=== PATIENT | female | born 1970 | race Caucasian/White ===

== ENCOUNTER → 2016-06-03 | Outpatient (CLI) | payer OTHER ==
--- NOTE | 2016-06-03 09:31 | RAD ---
DATE: 06/03/2016 EXAM: DIGITAL DIAGNOSTIC LT HISTORY: Possible abnormality seen on screening COMPARISON: Screening examination 2 weeks earlier This study was interpreted with the benefit of Computerized Aided Detection (CAD). FINDINGS: The breast parenchyma unchanged relative to the screening exam. An ML view as well as 2 coned compression views and rolled cc views were obtained. On the cone compression views the finding seen on screening is reproduced although it appears somewhat smaller. No abnormality is seen on the MLO view or on the rolled cc view laterally. The finding likely reflects summation artifact. A single follow-up cc view of the left breast is suggested in 6 months to document stability. IMPRESSION: Probable benign finding BI-RADS CATEGORY: 3 PROBABLE BENIGN FINDING(S-SHORT INTERVAL FOLLOW-UP SUGGESTED RECOMMENDED FOLLOW-UP: 6M 6 MONTH FOLLOW-UP PQRS compliance statement: Patient information was entered into a reminder system with a target due date 12/04/2016 for the next mammogram. Mammography is a sensitive method for finding small breast cancers, but it does not detect them all and is not a substitute for careful clinical examination. A negative mammogram does not negate a clinically suspicious finding and should not result in delay in biopsying a clinically suspicious abnormality. "Our facility is accredited by the [employer] Mammography [employer]."
== END | disposition home or self-care (01) ==
LOC: MAMMO 08:56
PROVIDERS: ATTEND Physician Assistant
DX: R92.8 Other abnormal and inconclusive findings on diagnostic imaging of breast (principal)
CPT/HCPCS: G0206; 77065

== ENCOUNTER → 2018-01-25 | Outpatient (CLI) | payer OTHER ==
--- NOTE | 2018-01-25 12:02 | RAD ---
Complete abdominal ultrasound History: EPIGASTRIC PAIN. Findings: Aorta: No evidence of aneurysm. Inferior vena cava: Patent Pancreas: Poorly visualized Liver: No sonographic lesion Gallbladder: Echogenic shadowing structures are identified, most compatible with gallstones. Gallbladder wall thickening, measures 5 mm. Bile ducts: Common bile duct is dilated at 9 mm. Right kidney: 12.9 cm length. No evidence of hydronephrosis. Left kidney: 14.6 cm length. No evidence of hydronephrosis. Spleen: Upper limits normal, 12.2 cm. Impression: Findings are compatible with cholelithiasis. Gallbladder wall thickening can be associated with cholecystitis. Electronically signed by: John Javier MD (01/25/2018 11:58 AM) [id number]
--- NOTE | 2018-01-25 16:39 | RAD ---
DATE: 01/25/2018 EXAM: DIGITAL SCREEN BILAT W/CAD HISTORY: Routine screening COMPARISON: 05/20/2016 screen mammogram This study was interpreted with the benefit of Computerized Aided Detection (CAD). Breast Density: FATTY The breast parenchyma is primarily fatty replaced. Breast parenchyma level density A. FINDINGS: Benign axillary lymph nodes are present. No suspicious calcification cluster. No dominant mass or distortion. IMPRESSION: Benign findings BI-RADS CATEGORY: 2 BENIGN FINDING(S) RECOMMENDED FOLLOW-UP: 12M 12 MONTH FOLLOW-UP PQRS compliance statement: Patient information was entered into a reminder system with a target due date in one year for the next mammogram. Mammography is a sensitive method for finding small breast cancers, but it does not detect them all and is not a substitute for careful clinical examination. A negative mammogram does not negate a clinically suspicious finding and should not result in delay in biopsying a clinically suspicious abnormality. "Our facility is accredited by the [employer] Mammography Program."
--- NOTE | 2018-01-25 16:42 | RAD ---
2 view abdominal series INDICATIONS: Epigastric abdominal pain FINDINGS: Moderate fecal retention is seen throughout the colon and rectosigmoid region. No obstructive bowel pattern is evident. No air-fluid levels are seen. No free air is evident. Multiple radiopaque gallstones are evident. Coarse calcifications are seen within the left side of the anatomic pelvis which could represent a calcified uterine fibroid. IMPRESSION: Moderate fecal retention. Cholelithiasis. Possible calcified uterine fibroid. Electronically signed by: Jt Sepulveda MD (01/25/2018 4:38 PM) [place] [id number]
== END | disposition home or self-care (01) ==
LOC: US 11:02
PROVIDERS: ATTEND Physician Assistant
DX: Z12.31 Encounter for screening mammogram for malignant neoplasm of breast (principal); K80.20 Calculus of gallbladder without cholecystitis without obstruction; K59.09 Other constipation
CPT/HCPCS: 74021; 76700; 77067

== ENCOUNTER → 2021-07-03 | Outpatient (CLI) | payer OTHER ==
--- NOTE | 2021-07-04 09:26 | RAD ---
XR HAND_RIGHT 2 VIEWS 07/03/2021 1:45 PM INDICATION: No known injury, thumb pain COMPARISON: None available. TECHNIQUE: 2 views of the right hand are provided. FINDINGS/ IMPRESSION: There is no acute fracture or dislocation. Mild to moderate osteoarthrosis of the first carpometacarp al joint with joint space narrowing, marginal osteophytosis and subcortical sclerosis.. Bone minerali zation is within normal limits. Regional soft tissues are within normal limits. There is no soft tiss ue gas or osseous erosion. No radiopaque foreign body. Electronically signed by: Jia Cook MD (07/04/2021 9:24 AM) [id number]
== END ==
LOC: RAD 13:33
PROVIDERS: ATTEND Physician Assistant
DX: M19.041 Primary osteoarthritis, right hand (principal); M25.741 Osteophyte, right hand; M25.841 Other specified joint disorders, right hand
CPT/HCPCS: 73120